=== PATIENT | male | born 2000 | race Caucasian/White ===

== ENCOUNTER 2020-07-15 07:49 | Day surgery (SDC) | payer BC ==
[2020-07-15] MEDS ORDERED: Ketorolac Tromethamine 30 MG/ML VIAL ONE (08:41)
[2020-07-15] MEDS ORDERED: Mag-Al 1200 mg/1200 mg/30 ML UDCUP ONE (08:44)
[2020-07-15] MEDS ORDERED: Lidocaine Viscous Sol 2% 15 ml UD Cup ONE (08:44)
[2020-07-15 08:45] LABS: #Eosinphils 0.1 thou/uL (0.0-0.7); #Lymphocytes 1.5 thou/uL (1.20-3.40); #Monocytes 0.9 thou/uL (0.11-0.59); #Neutrophils 11.5 thou/uL (1.40-6.50); %Basophils 0.2 % (0.0-1.0); %Eosinophils 0.9 % (0.0-10.0); %Lymphocytes 10.3 % (21.0-51.0); %Monocytes 6.2 % (0.0-10.0); %Neutrophils 82.3 % (42.0-75.0); Hemoglobin 18.2 g/dL (14.0-18.0); Mean Corpuscular HGB CONC 35.1 g/dL (32.0-36.0); Mean Corpuscular Hemoglobin 31.4 pg (27.0-31.0); Mean Corpuscular Volume 89.5 fL (78.0-98.0); Platelet Count 148 thou/uL (130-400); RBC Distribution Width 12.1 % (11.5-14.5); Red Blood Cell (RBC) Count 5.81 mill/uL (4.70-6.10)
[2020-07-15 09:05] LABS: ALT (SGPT) 17 U/L (8-55); AST (SGOT) 12 U/L (5-34); Albumin 4.9 g/dL (3.5-5.0); Alkaline Phosphatase 78 U/L (40-110); Anion Gap 14 mmol/L (10-20); BUN (Urea Nitrogen) 14 mg/dL (8.9-20.6); Bilirubin, Total 0.9 mg/dL (0.2-1.2); Calc. Creatinine Clearance 0 mL/min (70-130); Calcium 9.4 mg/dL (7.8-10.44); Carbon Dioxide 29 mmol/L (22-29); Chloride 103 mmol/L (98-107); Estimated GFR-MDRD 81; Globulin 2.3 g/dL (2.4-3.5); Glucose 110 mg/dL (70-105); Lipase 19 U/L (8-78); Potassium 3.8 mmol/L (3.5-5.1); Protein, Total 7.2 g/dL (6.0-8.3); Sodium 142 mmol/L (136-145)
--- NOTE | 2020-07-15 09:05 | ULT ---
GALLBLADDER ULTRASOUND: HISTORY: Right upper quadrant and epigastric abdominal pain FINDINGS: The liver demonstrates homogeneous echotexture without focal mass or intrahepatic biliary ductal dila tation. No gallstones, gallbladder wall thickening or pericholecystic fluid are seen. Small amount of sludge is noted in the gallbladder. The right kidney and visualized portions of the pancreas are normal. The common duct [id number] in diameter. No free fluid is seen in the Valerio's pouch. IMPRESSION: Small amount of gallbladder sludge, otherwise unremarkable exam
[2020-07-15] MEDS ORDERED: Dexamethasone 20 MG/5 ML VIAL ONE (09:09)
[2020-07-15] MEDS ORDERED: PROPOFOL 200 MG/20 ML VIAL ONE (09:09)
[2020-07-15] MEDS ORDERED: Glycopyrrolate 0.2 MG/ML 5 ML SYRINGE ONE (09:09)
[2020-07-15] MEDS ORDERED: Succinylcholine 200 MG/10 ml SYRINGE FS ONE (09:09)
[2020-07-15] MEDS ORDERED: Rocuronium Bromide 10 MG/ML (10ML VIAL) ONE (09:09)
[2020-07-15] MEDS ORDERED: Ondansetron PF 4 MG/2 ML Vial ONE (09:09)
[2020-07-15] MEDS ORDERED: Lidocaine 1% PF 5 ML VIAL ONE (09:09)
[2020-07-15] MEDS ORDERED: Piperacillin/Tazobactam 4.5 GM VIAL ONE (10:08)
--- NOTE | 2020-07-15 10:11 | CT ---
CT ABDOMEN AND PELVIS WITH IV CONTRAST: Date: 07/15/2020 HISTORY: Epigastric and right lower quadrant abdominal pain. FINDINGS: The lung bases are clear. The liver, pancreas, adrenal glands, and kidneys are normal. The spleen is enlarged, measuring 15.0 cm in length. No calcified gallstones are noted. No free air or free fluid i s seen in the abdomen or pelvis. The small bowel loops are not abnormally dilated. The appendix is dilated with an enhancing wall and periappendiceal inflammatory changes. Prominent ileocecal lymph nodes are present. The bony structure s are unremarkable. IMPRESSION: 1. Acute appendicitis. 2. Splenomegaly. Discussed over the telephone with ER physician, Dr. Kern, at [id number] hours. CODE CR. POS: OFF
[2020-07-15 11:04] LABS: Bacteria/HPF None Seen HPF (None Seen); Bilirubin Negative (Negative); Blood, Urine Negative (Negative); Clarity Clear (Clear); Glucose, Urine (Dipstick) Normal (Negative); Ketone, Urine Negative (Negative); Leukocyte Negative Leu/uL (Negative); Mucous/LPF 1+ LPF (<2+); Nitrite Negative (Negative); Protein, Urine (Dipstick) 50 mg/dL (Neg-Trace); Specific Gravity, Urine 1.031 (1.002-1.036); Squamous Epithelial None Seen HPF (0-3); WBC/HPF 0-3 HPF (0-3)
[2020-07-15 11:05] LABS: Sperm/HPF Rare HPF (None Seen)
--- NOTE | 2020-07-15 11:05 | HP ---
HISTORY OF PRESENT ILLNESS: Ivan Clark is a 20-year-old male who has lived in [place], but is attending [facility]. He developed abdominal pain in right lower quadrant yesterday, progressing, and presented to the emergency room. Initial ultrasound was unremarkable except for a trace gallbladder sludge. Abdomen and pelvis CAT scan revealed changes of appendicitis. His white count is slightly elevated. He has suffered anorexia. Pain is worse with movement. ALLERGIES: SULFA. SOCIAL HISTORY: Tobacco, none. He does vape. Alcohol, occasionally. PAST SURGICAL HISTORY: Tonsillectomy, adenoidectomy, elbow collateral ligament repair, pilonidal cystectomy. REVIEW OF SYSTEMS: Ten-point noncontributory. PHYSICAL EXAMINATION: VITAL SIGNS: Blood pressure 120/60, heart rate 68, respiratory rate 18, afebrile. HEAD, EARS, EYES, NOSE AND THROAT: Unremarkable. LUNGS: Clear to auscultation. CARDIAC: Regular rate and rhythm. No murmur or gallop. ABDOMEN: Soft, tenderness in the right lower quadrant, guarding, and rebound. EXTREMITIES: Unremarkable. LABORATORY DATA: White count 14, hemoglobin 18. Basic metabolic profile normal. ASSESSMENT AND PLAN: Acute appendicitis. We will recommend laparoscopic video appendectomy. Risks of infection, bleeding, visceral injury, open procedure, and blood transfusion were discussed. He consents. Questions were answered. Job ID: [id number]
[2020-07-15 11:47] LABS: SARS-CoV-2 NAA Rapid Test Not Detected (NotDetected)
[2020-07-15] MEDS ORDERED: Iopamidol-370 76% 500 ML 1 ML ONE (14:18)
[2020-07-15] MEDS ORDERED: Midazolam HCl 2 mg/2 ml Vial ONE ×2 (16:15→17:41)
[2020-07-15] MEDS ORDERED: Lidocaine 1% w/Epinephrine 1:100K 20 ML VIAL ONE (16:19)
[2020-07-15] MEDS ORDERED: Bupivacaine 0.25% HCL 30 ML VIAL ONE (16:19)
[2020-07-15] MEDS ORDERED: HYDROmorphone 0.5 MG/0.5 ML SYRINGE ONE (17:41)
[2020-07-15] MEDS ORDERED: Fentanyl 100 MCG/2 ML VIAL ONE (17:41)
[2020-07-15] MEDS ORDERED: Piperacillin/Tazobactam 3.375 GM VIAL ONE (18:12)
[2020-07-15] MEDS ORDERED: HYDROcodone/Acetaminophen 5/325 mg Tablet ONE (19:00)
--- NOTE | 2020-07-15 23:51 | OP ---
DATE OF PROCEDURE: 07/15/2020 PREOPERATIVE DIAGNOSIS: Acute appendicitis. POSTOPERATIVE DIAGNOSIS: Acute appendicitis. PROCEDURE PERFORMED: Laparoscopic video appendectomy. ANESTHESIA: General, local 0.5% Marcaine 30 mL mixed with 1% Xylocaine with epinephrine 20 mL. FINDINGS: Acute appendicitis. DESCRIPTION OF PROCEDURE: The patient was taken to the operating room, where under general anesthesia, abdomen was clipped of hair, prepared with ChloraPrep and draped in routine fashion. Gómez catheter placed at the beginning of procedure and removed at the end. Local anesthetic was infiltrated in the skin and subcutaneous tissue about each port site. Infraumbilical incision made, pneumoperitoneum to 15 mmHg was obtained with a Veress needle, replaced with a 5 port and the laparoscope inserted. Right lateral subcostal incision made and suprapubic incision made a 5 and 12 port placed respectively under laparoscopic visualization. Appendix acutely inflamed. Mesoappendix was taken down with LigaSure. Stump of the appendix, cecal stump divided with the Endo-JACY blue load stapler. Stapled cecal stump hemostatic and secured as the appendix removed through the 12 port, submitted to Pathology. Good hemostasis noted. Irrigant and pneumoperitoneum evacuated. Suprapubic fascia approximated with 0 Vicryl, skin with subdermal 4-0 Monocryl and [place] glue applied. Job ID: [id number]
== END 2020-07-15 19:50 | disposition home or self-care (01) ==
LOC: ERS 07:49 → SDC 13:22
PROVIDERS: ATTEND Specialist
PROC: 0DTJ4ZZ Resection of Appendix, Percutaneous Endoscopic Approach (ICD-10-PCS; principal; 2020-07-15)
DX: K35.80 Unspecified acute appendicitis (principal); R16.1 Splenomegaly, not elsewhere classified; F17.290 Nicotine dependence, other tobacco product, uncomplicated; Z20.828 Contact with and (suspected) exposure to other viral communicable diseases; Z88.2 Allergy status to sulfonamides
CPT/HCPCS: 74177; 76705; 80053; 81003; 81015; 83690; 85025; 88304; J1100; J1170; J1885; J2250; J2405; J2543; J2704; J3010; Q9967; S0020; U0002